=== PATIENT | female | born 1990 | race Hispanic/Latino ===

== ENCOUNTER 2016-07-15 02:18 | Emergency (ER) | payer OTHER ==
[2016-07-15 02:26] VITALS: BP 140/91; PULSE 101; RESP 16; TEMP 98.1; O2SAT 98
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
== END 2016-07-15 03:35 | disposition home or self-care (01) ==
LOC: H.ER 02:18
DX: F41.9 Anxiety disorder, unspecified (principal)